=== PATIENT | male | born 1990 | race Caucasian/White ===

== ENCOUNTER 2023-12-08 21:39 | Emergency (ER) | payer MEDICAID ==
[~2023-12-08] VITALS: Ht 170.2 cm; Wt 65.9 kg
[2023-12-08 21:50] VITALS: BP 134/75; PULSE 105; RESP 18; TEMP 98.3; O2SAT 97
== END 2023-12-08 23:50 | disposition home or self-care (01) ==
LOC: ER 21:40
DX: S05.11XA Contusion of eyeball and orbital tissues, right eye, initial encounter (principal); Y08.89XA Assault by other specified means, initial encounter; Y93.89 Activity, other specified; Y92.89 Other specified places as the place of occurrence of the external cause; Y99.8 Other external cause status
CPT/HCPCS: 70486; 99284

== ENCOUNTER 2024-03-07 08:12 | Emergency (ER) | payer MEDICAID ==
[~2024-03-07] VITALS: Ht 172.7 cm; Wt 63.6 kg
[2024-03-07] MEDS: ondansetron 4mg rapidly disintigrating tab PO ONE (09:21)
[2024-03-07] MEDS: HYDROcodone/acetaminophen 5mg/325mg tablet PO ONE (09:22)
[2024-03-07] MEDS: ketorolac trometh 30MG/ML vial 30 MG/ML VIAL IM ONE (09:22)
[2024-03-07 11:04] VITALS: BP 126/86; PULSE 68; RESP 18; TEMP 97.8; O2SAT 98
== END 2024-03-07 11:05 | disposition home or self-care (01) ==
LOC: ER 08:13
DX: S42.192A Fracture of other part of scapula, left shoulder, initial encounter for closed fracture (principal); X58.XXXA Exposure to other specified factors, initial encounter; Y93.89 Activity, other specified; Y92.89 Other specified places as the place of occurrence of the external cause; Y99.8 Other external cause status
CPT/HCPCS: 73030; 73200; 96372; 99285; J1885; A4565

== ENCOUNTER 2024-06-05 13:16 | Emergency (ER) | payer MEDICAID ==
[~2024-06-05] VITALS: Ht 170.2 cm; Wt 68.8 kg
[2024-06-05 13:22] VITALS: BP 137/78; PULSE 88; O2SAT 97
[2024-06-05] MEDS ORDERED: ketorolac trometh 30MG/ML vial 30 MG/ML VIAL IM ONE (15:05)
[2024-06-05 15:11] VITALS: RESP 14
[2024-06-05] MEDS: ketorolac trometh 15mg/ml vial 15 MG/ML ML IM ONE (15:11)
[2024-06-05 16:01] VITALS: TEMP 98
== END 2024-06-05 16:05 | disposition home or self-care (01) ==
LOC: ER 13:16
DX: S62.002A Unspecified fracture of navicular [scaphoid] bone of left wrist, initial encounter for closed fracture (principal); S42.022A Displaced fracture of shaft of left clavicle, initial encounter for closed fracture; S50.12XA Contusion of left forearm, initial encounter; F12.90 Cannabis use, unspecified, uncomplicated; Y08.89XA Assault by other specified means, initial encounter; Y93.89 Activity, other specified; Y92.89 Other specified places as the place of occurrence of the external cause; Y99.8 Other external cause status
CPT/HCPCS: 29125; 71045; 73030; 73110; 96372; 99284; J1885; A6446

== ENCOUNTER 2024-08-04 17:48 | Emergency (ER) | payer MEDICAID ==
[~2024-08-04] VITALS: Ht 170.2 cm; Wt 147.5 kg
[2024-08-04] MEDS: epiNEPHrine 1 mg/ml inj IM STA (18:29)
[2024-08-04] MEDS: famotidine/PF 10 mg/ml inj IV ONE (19:15)
[2024-08-04] MEDS: diphenhydrAMINE 50 mg/ml inj IV ONE (19:17)
[2024-08-04] MEDS: dexamethasone sod phosphate 10mg/ml inj IV STA (19:17)
[2024-08-04 19:21] LABS: BASOPHILS % (AUTO) 0.2 % (0-1); EOSINOPHILS % (AUTO) 0.1 % (0-6); HEMATOCRIT 42.6 % (42.0-52.0); LYMPHOCYTES # (AUTO) 1.4 X10'3 (1.1-4.8); LYMPHOCYTES % (AUTO) 7.3 % (21-51); MEAN CORPUSCULAR HEMOGLOBIN 31.5 PG (27.0-31.0); MEAN CORPUSCULAR HGB CONC 35.2 g/dL (33.0-36.5); MEAN CORPUSCULAR VOLUME 89.5 FL (78-98); MEAN PLATELET VOLUME 6.7 FL (7.4-10.4); MONOCYTES # (AUTO) 1.8 X10'3 (0-0.9); MONOCYTES % (AUTO) 9.5 % (2-12); NEUTROPHILS # (AUTO) 15.4 X10'3 (1.8-7.7); NEUTROPHILS % (AUTO) 82.9 % (42-75); PLATELET COUNT 396 X10'3 (140-440); RED BLOOD COUNT 4.76 X10'6 (4.70-6.10); RED CELL DISTRIBUTION WIDTH 13.9 % (11.5-14.5); WHITE BLOOD COUNT 18.6 X10'3 (4.5-11.0)
[2024-08-04 19:53] VITALS: BP 126/75; PULSE 88; O2SAT 95
[2024-08-04 19:54] LABS: ALANINE AMINOTRANSFERASE 81 U/L (12-78); ALBUMIN 4.3 G/DL (3.4-5.0); ALBUMIN/GLOBULIN RATIO 1.4 (1.1-1.5); ALKALINE PHOSPHATASE 99 IU/L (46-116); ANION GAP 10 (8-16); ASPARTATE AMINO TRANSFERASE 118 U/L (10-37); BILIRUBIN,TOTAL 0.6 MG/DL (0.1-1.0); BLOOD UREA NITROGEN 7 MG/DL (7-18); BUN/CREATININE RATIO 6.8 (10.0-20.0); CALCIUM 8.9 MG/DL (8.5-10.1); CHLORIDE 99 MMOL/L (99-107); CREATININE 1.03 MG/DL (0.60-1.10); GLUCOSE 119 MG/DL (70-104); POTASSIUM 4.4 MMOL/L (3.5-5.1); SODIUM 135 MMOL/L (135-145); TOTAL CARBON DIOXIDE 26.1 MMOL/L (24-32); TOTAL PROTEIN 7.3 G/DL (6.4-8.2); eCRCL 93 ML/MIN; eGFR 82 ML/MIN
[2024-08-04 20:04] LABS: C-REACTIVE PROTEIN 0.77 MG/DL (0.0-0.5); THYROID STIMULATING HORMONE 0.95 ulU/ml (0.34-4.50)
[2024-08-04] MEDS: ketorolac trometh 30MG/ML vial 30 MG/ML VIAL IV ONE (21:21)
[2024-08-04] MEDS ORDERED: iohexol 300mg/ml 100ml inj. ONE (21:53)
[2024-08-04 22:15] VITALS: RESP 16
[2024-08-04] MEDS: ampicillin/sulbac 3gm/NS 100ml 100 ML IV SCH (23:02)
[2024-08-04] MEDS ORDERED: EPIN0.3P3 IM (23:18)
[2024-08-04] MEDS ORDERED: AMOX-117 PO (23:18)
[2024-08-04 23:38] VITALS: TEMP 98.9
== END 2024-08-04 23:40 | disposition home or self-care (01) ==
LOC: ER 17:48
DX: T78.2XXA Anaphylactic shock, unspecified, initial encounter (principal); K14.8 Other diseases of tongue; F12.90 Cannabis use, unspecified, uncomplicated; M54.2 Cervicalgia; Z79.2 Long term (current) use of antibiotics; Z79.899 Other long term (current) drug therapy
CPT/HCPCS: 36415; 70491; 80053; 84443; 84484; 85025; 86140; 86161; 96365; 96372; 96375; 99291; J0171; J0295; J1100; J1200; J1885; J3490; Q9967